=== PATIENT | male | born 1960 | race African-American/Black ===

== ENCOUNTER 2017-06-14 11:43 | Emergency (ER) | payer SELFPAY ==
[~2017-06-14] VITALS: Ht 175.3 cm; Wt 72.6 kg
[2017-06-14] MEDS ORDERED: Sodium Chloride 500ML 500 ML IV ONE (11:51)
[2017-06-14] MEDS ORDERED: LORazepam Inj 2mg/ml 1ml IV ONE (12:00)
[2017-06-14] MEDS ORDERED: Albuterol ud Inhalation HHN ONE (12:00)
[2017-06-14 12:37] LABS: BASOPHILS % (AUTO) 0.8 % (0.0-2.0); EOSINOPHILS % (AUTO) 0.3 % (0.0-3.0); MEAN CORPUSCULAR HEMOGLOBIN 29.9 PG (27.0-31.0); MEAN CORPUSCULAR HGB CONC 32.9 G/DL (32.0-36.0); MEAN CORPUSCULAR VOLUME 91 FL (80-99); MEAN PLATELET VOLUME 6.9 FL (6.5-10.1); MONOCYTES % (AUTO) 10.3 % (1.0-10.0); NEUTROPHILS % (AUTO) 80.6 % (45.0-75.0); PLATELET COUNT 221 K/UL (150-450); RED BLOOD COUNT 5.82 M/UL (4.70-6.10); RED CELL DISTRIBUTION WIDTH 11.8 % (11.6-14.8); WHITE BLOOD COUNT 13.5 K/UL (4.8-10.8)
[2017-06-14 12:47] LABS: ANION GAP 11 mmol/L (5-15); CALCIUM 10.1 MG/DL (8.5-10.1); CARBON DIOXIDE 28 MMOL/L (21-32); CHLORIDE 100 MMOL/L (98-107); CREATININE 1.3 MG/DL (0.55-1.30); GLOMERULAR FILTRATION RATE 57.3 mL/min (>60); POTASSIUM 4.3 MMOL/L (3.5-5.1); SODIUM 139 MMOL/L (136-145)
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
[2017-06-14 12:56] VITALS: BP 140/85
[2017-06-14 12:59] LABS: ALANINE AMINOTRANSFERASE 26 U/L (12-78); ALBUMIN/GLOBULIN RATIO 1.1 (1.0-2.7); ASPARTATE AMINO TRANSFERASE 55 U/L (15-37); CKMB 10.6 NG/ML (0.0-3.6); TOTAL PROTEIN 9.2 G/DL (6.4-8.2)
[2017-06-14 13:00] LABS: BILIRUBIN,DIRECT 0.3 MG/DL (0.0-0.3)
[2017-06-14 15:20] VITALS: BP 127/69
--- NOTE | 2017-06-15 09:56 | Diagnostic Imaging Report ---
Indication: Chest pain Technique: One view of the chest Comparison: none Findings: Lungs and pleural spaces are clear. Heart size is normal. Impression: No acute process
--- NOTE | 2017-06-15 19:24 | Cardiology Report ---
APPROVED REPORT EKG Measurement Heart [id number] Normal sinus rhythm Normal ECG
== END 2017-06-14 15:28 | disposition home or self-care (01) ==
LOC: EDBD 11:43 → EMR 12:00
DX: F19.10 Other psychoactive substance abuse, uncomplicated (principal); J70.5 Respiratory conditions due to smoke inhalation; G89.29 Other chronic pain; M54.9 Dorsalgia, unspecified; F20.9 Schizophrenia, unspecified
CPT/HCPCS: 36415; 71010; 80053; 80307; 82248; 82550; 82553; 84484; 85025; 93005; 94640; 94664; 96361; 96374; 99284; J7040